=== PATIENT | male | born 1960 | race Caucasian/White ===

== ENCOUNTER 2021-02-26 02:19 | Emergency (ER) | payer OTHER ==
[~2021-02-26] VITALS: Ht 172.7 cm; Wt 83.5 kg
--- NOTE | 2021-02-26 02:38 | NUR ---
PT PRESENTS TO ER FOR RIGHT FLANK PAIN ASSOCIATED WITH NAUSEA AND DIFFICULTY URINATING, PT STATES HE THINKS ITS A KIDNEY STONE BECAUSE HE HAS HAD THEM BEFORE, PA AT BEDSIDE FOR POC
[2021-02-26 02:59] LABS: BASOPHILS % (AUTO) 1 % (0-1); EOSINOPHILS % (AUTO) 1 % (1-7); LYMPHOCYTES % (AUTO) 14 % (22-44); MEAN CORPUSCULAR HEMOGLOBIN 32.5 pg (27.5-34.5); MEAN CORPUSCULAR HGB CONC 35.1 g/dL (33.2-36.2); MEAN PLATELET VOLUME 6.9 fL (7.4-10.4); MONOCYTES % (AUTO) 6 % (2-9); NEUTROPHILS % (AUTO) 79 % (42-75); PLATELET COUNT 144 x10^3/uL (130-400); RED CELL DISTRIBUTION WIDTH 14.1 % (9.4-14.8)
[2021-02-26] MEDS ORDERED: ONDANSETRON 2MG/ML, 2ML IVPush ONE (03:00)
[2021-02-26] MEDS ORDERED: KETOROLAC 30 MG/1 ML IVPush ONE (03:00)
[2021-02-26 03:11] LABS: ALANINE AMINOTRANSFERASE 50 U/L (12-78); ALBUMIN 3.4 g/dL (3.4-5.0); ANION GAP 6 mmol/L (5-15); CALCIUM 8.9 mg/dL (8.5-10.1); CHLORIDE 107 mmol/L (98-107); CREATININE 1.21 mg/dL (0.7-1.3)
[2021-02-26 03:13] LABS: ALKALINE PHOSPHATASE 53 U/L (45-117); BILIRUBIN,TOTAL 0.4 mg/dL (0.2-1.0); TOTAL PROTEIN 6.8 g/dL (6.4-8.2)
[2021-02-26 03:17] LABS: MICROSCOPIC INDICATED
[2021-02-26] MEDS ORDERED: ONDANSETRON 2MG/ML, 2ML ONE (03:26)
[2021-02-26] MEDS ORDERED: KETOROLAC 30 MG/1 ML ONE (03:26)
--- NOTE | 2021-02-26 03:37 | NUR ---
PT LAYING IN BED, A/OX4, AT BEDSIDE, ALL NEEDS IN REACH, CALL LIGHT IN REACH, NAD, VSS
[2021-02-26 04:40] VITALS: BP 120/77
== END 2021-02-26 04:43 | disposition home or self-care (01) ==
LOC: ED 02:30
DX: N20.2 Calculus of kidney with calculus of ureter (principal); R11.0 Nausea
CPT/HCPCS: 36415; 74176; 80053; 81001; 85025; 87077; 87086; 96374; 96375; 99284; J1885; J2405; 87186

== ENCOUNTER 2021-02-26 14:43 | Emergency (ER) | payer OTHER ==
[~2021-02-26] VITALS: Ht 172.7 cm; Wt 83.5 kg
[2021-02-26 15:48] LABS: BASOPHILS % (AUTO) 0 % (0-1); EOSINOPHILS % (AUTO) 0 % (1-7); LYMPHOCYTES % (AUTO) 10 % (22-44); MEAN CORPUSCULAR HEMOGLOBIN 32.4 pg (27.5-34.5); MEAN CORPUSCULAR HGB CONC 34.5 g/dL (33.2-36.2); MEAN PLATELET VOLUME 6.8 fL (7.4-10.4); MONOCYTES % (AUTO) 6 % (2-9); NEUTROPHILS % (AUTO) 84 % (42-75); PLATELET COUNT 149 x10^3/uL (130-400); RED BLOOD COUNT 4.85 x10^6/uL (4.38-5.82); RED CELL DISTRIBUTION WIDTH 13.8 % (9.4-14.8)
[2021-02-26 15:56] LABS: ALBUMIN 3.8 g/dL (3.4-5.0); ANION GAP 6 mmol/L (5-15); CALCIUM 9.5 mg/dL (8.5-10.1); CHLORIDE 104 mmol/L (98-107); CREATININE 1.51 mg/dL (0.7-1.3)
--- NOTE | 2021-02-26 17:39 | NUR ---
assistant pressman: Pt ambulatory to room from lobby at this time.
--- NOTE | 2021-02-26 17:44 | NUR ---
Note undone in EDM - 02/26/21 at 1857 by [facility] INTINAL CONTACT WITH PT. PT REPORTS RT FLANK PAIN, HERE LAST NIGHT AND DX 3MM KIDNEY STONE. N/V, PAIN WORSE THAN LAST NIGHT. PT TO BED WITH STEADY GAIT. AT BEDSIDE. POSTIONED TO COMFORT. ATTACHED TO MONITORS. VSS. MUNIZ.
[2021-02-26 18:06] LABS: MICROSCOPIC INDICATED
[2021-02-26] MEDS ORDERED: KETOROLAC 30 MG/1 ML ONE (18:11)
[2021-02-26] MEDS ORDERED: ONDANSETRON 2MG/ML, 2ML ONE (18:12)
[2021-02-26] MEDS ORDERED: HYDROmorphone 1 MG/ML, 1ML INJ ONE (18:12)
[2021-02-26] MEDS ORDERED: KETOROLAC 30 MG/1 ML IVPush ONE (18:30)
[2021-02-26] MEDS ORDERED: ONDANSETRON 2MG/ML, 2ML IVPush ONE (18:30)
[2021-02-26] MEDS ORDERED: HYDROmorphone 1 MG/ML, 1ML INJ IV ONE (18:30)
--- NOTE | 2021-02-26 18:57 | NUR ---
LATE ENTRY: INTINAL CONTACT WITH PT. PT REPORTS RT FLANK PAIN, HERE LAST NIGHT AND DX 3MM KIDNEY STONE. N/V, PAIN WORSE THAN LAST NIGHT. PT TO BED WITH STEADY GAIT. AT BEDSIDE. POSTIONED TO COMFORT. ATTACHED TO MONITORS. VSS. MUNIZ.
--- NOTE | 2021-02-26 19:54 | NUR ---
PATIENT CLEARED FOR DISCHARGE. VERBALIZED UNDERSTANDING OF SELF CARE AND FOLLOW UP CARE AT HOME. VERBALIZED UNDERSTANDING WITH PRESCRIPTIONS. PATIENT AMBULATORY TO DISCHARGE WITHOUT COMPLICATIONS WITH BELONGINGS. NO NOTED ACUTE DISTRESS, VSS.
[2021-02-26 19:56] VITALS: BP 126/73
== END 2021-02-26 19:59 | disposition home or self-care (01) ==
LOC: ED 19:50
DX: N20.0 Calculus of kidney (principal); Z88.0 Allergy status to penicillin
CPT/HCPCS: 36415; 76770; 80048; 81001; 82040; 85025; 87086; 96374; 96375; 99284; J1170; J1885; J2405

== ENCOUNTER 2021-03-01 08:38 | Inpatient (IN) | payer OTHER ==
[~2021-03-01] VITALS: Ht 172.7 cm; Wt 92.1 kg
--- NOTE | 2021-03-01 09:00 | NUR ---
assumed care of pt. he is here w/ c/o of worsening pain r/t dx kidney stone w/ N/V. pt has been here previously for this dx. pt in gown, hooked to bp, pulse ox monitors. vss, nadn, call light w/in reach.
[2021-03-01] MEDS ORDERED: ONDANSETRON 2MG/ML, 2ML IVPush ONE (09:30)
[2021-03-01] MEDS ORDERED: SODIUM CHLORIDE 0.9% 1,000 ML IV ONE (09:30)
[2021-03-01] MEDS ORDERED: MORPHINE SULFATE 4 MG/ML, 1ML IVPush PRN (09:30)
[2021-03-01] MEDS ORDERED: SODIUM CHLORIDE 0.9% 1,000ML IVBOLUS ONE (09:30)
--- NOTE | 2021-03-01 09:41 | NUR ---
Pt to CT scan via tech.
[2021-03-01 09:48] LABS: BASOPHILS % (AUTO) 0 % (0-1); EOSINOPHILS % (AUTO) 0 % (1-7); LYMPHOCYTES % (AUTO) 8 % (22-44); MEAN CORPUSCULAR HEMOGLOBIN 32.5 pg (27.5-34.5); MEAN PLATELET VOLUME 6.8 fL (7.4-10.4); MONOCYTES % (AUTO) 6 % (2-9); NEUTROPHILS % (AUTO) 85 % (42-75); PLATELET COUNT 127 x10^3/uL (130-400); RED BLOOD COUNT 4.56 x10^6/uL (4.38-5.82); RED CELL DISTRIBUTION WIDTH 13.6 % (9.4-14.8)
[2021-03-01 09:51] LABS: ALBUMIN 3.4 g/dL (3.4-5.0); ANION GAP 3 mmol/L (5-15); CALCIUM 10.4 mg/dL (8.5-10.1); CHLORIDE 104 mmol/L (98-107)
[2021-03-01 09:55] LABS: ALANINE AMINOTRANSFERASE 33 U/L (12-78); ALKALINE PHOSPHATASE 44 U/L (45-117); BILIRUBIN,TOTAL 0.8 mg/dL (0.2-1.0); CREATININE 2.18 mg/dL (0.7-1.3); TOTAL PROTEIN 6.9 g/dL (6.4-8.2)
[2021-03-01] MEDS ORDERED: ONDANSETRON 2MG/ML, 2ML ONE (10:02)
[2021-03-01] MEDS ORDERED: MORPHINE SULFATE 4 MG/ML, 1ML ONE (10:03)
--- NOTE | 2021-03-01 10:12 | NUR ---
pt returned from ct, urine sample provided, collected and sent to lab. medicated per oct. vss, nadn, call light w/ in reach.
[2021-03-01 10:28] LABS: MICROSCOPIC AUTO
--- NOTE | 2021-03-01 10:45 | NUR ---
PT RESTING IN GURNEY, EYES CLOSED BEDSIDE. PT VSS, NADN, CALL LIGHT W/IN REACH.
--- NOTE | 2021-03-01 11:28 | NUR ---
New bag IV started per oct. pt resting in [facility], denies any needs. vss, nadn, call light w/in reach.
[2021-03-01] MEDS ORDERED: CEFTRIAXONE 1,000 MG in DEXTROSE 5% 50 ML IVPB ONE (12:00)
--- NOTE | 2021-03-01 12:59 | NUR ---
pt abx started, nadn. call light w/ in reach.
--- NOTE | 2021-03-01 13:23 | NUR ---
[facility] BEDSIDE NOW
[2021-03-01] MEDS ORDERED: ENALAPRILAT 1.25 MG/ML, 2ML IVPush PRN (13:30)
[2021-03-01] MEDS ORDERED: ACETAMINOPHEN 325 MG TABLET PO PRN (13:30)
[2021-03-01] MEDS ORDERED: MELATONIN 5 MG TABLET PO PRN (13:30)
[2021-03-01] MEDS ORDERED: POLYETHYLENE GLYCOL 17 GM PACKET PO PRN (13:30)
[2021-03-01] MEDS ORDERED: CEFTRIAXONE 2 GM in DEXTROSE 5% 50 ML IVPB SCH (14:00)
[2021-03-01 14:04] LABS: BASOPHILS % (AUTO) 0 % (0-1); EOSINOPHILS % (AUTO) 0 % (1-7); LYMPHOCYTES % (AUTO) 10 % (22-44); MEAN CORPUSCULAR HEMOGLOBIN 32.5 pg (27.5-34.5); MEAN CORPUSCULAR HGB CONC 34.6 g/dL (33.2-36.2); MEAN PLATELET VOLUME 6.9 fL (7.4-10.4); MONOCYTES % (AUTO) 6 % (2-9); NEUTROPHILS % (AUTO) 84 % (42-75); PLATELET COUNT 125 x10^3/uL (130-400); RED BLOOD COUNT 4.38 x10^6/uL (4.38-5.82); RED CELL DISTRIBUTION WIDTH 13.6 % (9.4-14.8)
[2021-03-01] MEDS: morphine SULFATE 10 MG/ML, 1ML IVPush PRN ×5 (14:27→23:06)
[2021-03-01] MEDS: ONDANSETRON 2MG/ML, 2ML IVPush PRN ×2 (16:00→22:05)
[2021-03-01] MEDS: HYDROcodone/APAP 5/325 TABLET PO PRN ×2 (17:15→21:24)
[2021-03-01 19:03] VITALS: BP 128/77
[2021-03-02] MEDS: morphine SULFATE 10 MG/ML, 1ML IVPush PRN ×8 (03:09→20:57)
[2021-03-02 03:13] VITALS: BP 141/81
[2021-03-02] MEDS: ONDANSETRON 2MG/ML, 2ML IVPush PRN ×3 (03:53→22:31)
[2021-03-02 06:04] LABS: ANION GAP 5 mmol/L (5-15); CALCIUM 8.9 mg/dL (8.5-10.1); CHLORIDE 104 mmol/L (98-107)
[2021-03-02 06:07] LABS: ALANINE AMINOTRANSFERASE 27 U/L (12-78); ALKALINE PHOSPHATASE 40 U/L (45-117); BILIRUBIN,TOTAL 0.8 mg/dL (0.2-1.0); CREATININE 2.17 mg/dL (0.7-1.3); TOTAL PROTEIN 6.5 g/dL (6.4-8.2)
[2021-03-02 07:45] VITALS: BP 136/78
[2021-03-02] MEDS: HYDROcodone/APAP 5/325 TABLET PO PRN ×4 (09:18→22:11)
[2021-03-02 12:53] VITALS: BP 125/72
[2021-03-02] MEDS ORDERED: CEFTRIAXONE 2 GM in DEXTROSE 5% 50 ML IVPB SCH (13:00)
[2021-03-02] MEDS: POTASSIUM CHLORIDE 10 MEQ in LACTATED RINGERS 1,000 ML IV SCH (16:27)
[2021-03-02] MEDS: LINEZOLID PMX 600MG/300ML 300 ML IV SCH (16:28)
[2021-03-02 20:07] VITALS: BP 124/66
[2021-03-03 00:26] VITALS: BP 144/83
[2021-03-03 01:27] VITALS: BP 148/80
[2021-03-03] MEDS: LORazepam 1MG TABLET PO ONE ×2 (01:42→04:17)
[2021-03-03] MEDS: LINEZOLID PMX 600MG/300ML 300 ML IV SCH ×2 (04:17→14:02)
[2021-03-03] MEDS: POTASSIUM CHLORIDE 10 MEQ in LACTATED RINGERS 1,000 ML IV SCH ×3 (04:20→21:41)
[2021-03-03 06:40] VITALS: BP 163/85
[2021-03-03] MEDS: morphine SULFATE 10 MG/ML, 1ML IVPush PRN (09:58)
[2021-03-03] MEDS ORDERED: OMNIPAQUE 350 MG/ML, 50 ML BOTTLE ONE ×2 (11:20→12:48)
[2021-03-03] MEDS ORDERED: FENTANYL PF 100 MCG/2ML ONE ×2 (12:34→13:09)
[2021-03-03] MEDS ORDERED: DEXAMETHASONE 4 MG/ML, 1ML ONE (13:26)
[2021-03-03] MEDS ORDERED: CEFAZOLIN 1,000 MG ONE (13:26)
[2021-03-03] MEDS ORDERED: PROPOFOL 10 MG/ML, 20ML ONE (13:26)
[2021-03-03] MEDS ORDERED: ONDANSETRON 2MG/ML, 2ML ONE (13:26)
[2021-03-03] MEDS ORDERED: BISACODYL 10 MG SUPP PR PRN (13:30)
[2021-03-03] MEDS ORDERED: METHOCARBAMOL 1,000 MG in DEXTROSE 5% 100 ML IV PRN (14:00)
[2021-03-03] MEDS ORDERED: hydrALAzine 20 MG/ML, 1ML IV PRN (14:00)
[2021-03-03] MEDS ORDERED: HYDROmorphone 1 MG/ML, 1ML INJ IVPush PRN (14:00)
[2021-03-03] MEDS ORDERED: ACETAMINOPHEN 325 MG TABLET PO PRN (14:00)
[2021-03-03] MEDS ORDERED: FENTANYL PF 100 MCG/2ML IV PRN (14:00)
[2021-03-03] MEDS ORDERED: ONDANSETRON 2MG/ML, 2ML IVPush PRN (14:00)
[2021-03-03] MEDS ORDERED: OXYcodone 5 MG/5 ML ORAL.SOL UDC PO PRN (14:00)
[2021-03-03] MEDS ORDERED: LABETALOL 5MG/ML, 20ML IV PRN (14:00)
[2021-03-03] MEDS ORDERED: PROMETHAZINE 25 MG/ML, 1ML IVPush PRN (14:00)
[2021-03-03] MEDS ORDERED: PROMETHAZINE 25 MG SUPP PR PRN (14:00)
[2021-03-03] MEDS ORDERED: LORazepam 2 MG/ML, 1ML IVPush PRN (14:00)
[2021-03-03] MEDS ORDERED: hydrALAzine 20 MG/ML, 1ML ONE (14:03)
[2021-03-03 18:05] LABS: ANION GAP 7 mmol/L (5-15); CALCIUM 8.6 mg/dL (8.5-10.1); CHLORIDE 101 mmol/L (98-107)
[2021-03-03 19:46] VITALS: BP 98/64
[2021-03-04 00:15] VITALS: BP 122/74
[2021-03-04] MEDS: LINEZOLID PMX 600MG/300ML 300 ML IV SCH (02:08)
[2021-03-04 03:43] VITALS: BP 121/71
[2021-03-04 05:28] LABS: BASOPHILS % (AUTO) 0 % (0-1); EOSINOPHILS % (AUTO) 0 % (1-7); LYMPHOCYTES % (AUTO) 9 % (22-44); MEAN CORPUSCULAR HEMOGLOBIN 32.7 pg (27.5-34.5); MEAN CORPUSCULAR HGB CONC 35.1 g/dL (33.2-36.2); MONOCYTES % (AUTO) 4 % (2-9); NEUTROPHILS % (AUTO) 87 % (42-75); PLATELET COUNT 153 x10^3/uL (130-400); RED BLOOD COUNT 4.36 x10^6/uL (4.38-5.82); RED CELL DISTRIBUTION WIDTH 13.5 % (9.4-14.8)
[2021-03-04 05:34] LABS: ALBUMIN 2.8 g/dL (3.4-5.0); ANION GAP 5 mmol/L (5-15); CALCIUM 8.7 mg/dL (8.5-10.1); CHLORIDE 101 mmol/L (98-107)
[2021-03-04 05:39] LABS: ALANINE AMINOTRANSFERASE 21 U/L (12-78); ALKALINE PHOSPHATASE 39 U/L (45-117); BILIRUBIN,TOTAL 0.5 mg/dL (0.2-1.0); CREATININE 1.69 mg/dL (0.7-1.3); TOTAL PROTEIN 6.6 g/dL (6.4-8.2)
[2021-03-04] MEDS: POTASSIUM CHLORIDE 10 MEQ in LACTATED RINGERS 1,000 ML IV SCH (05:58)
[2021-03-04 06:30] VITALS: BP 107/59
[2021-03-04] MEDS ORDERED: METHYLNALTREXONE 12 MG/0.6 ML SYR SQ ONE (08:30)
[2021-03-04] MEDS ORDERED: LINE600T12 PO ×2 (11:14)
[2021-03-04] MEDS ORDERED: LINE600T15 PO (13:05)
[2021-03-04] MEDS ORDERED: POLY17PO5 PO (13:05)
[2021-03-04 13:20] VITALS: BP 107/59
== END 2021-03-04 14:05 | disposition home or self-care (01) | DRG 660 ==
LOC: ED 10:40 → EDIP 12:06 → 4NE 13:42
PROVIDERS: ADMIT Hospitalist; ATTEND Internal Medicine
PROC: 0T768DZ Dilation of Right Ureter with Intraluminal Device, Via Natural or Artificial Opening Endoscopic (ICD-10-PCS; 2021-03-03)
PROC: 0TC68ZZ Extirpation of Matter from Right Ureter, Via Natural or Artificial Opening Endoscopic (ICD-10-PCS; principal; 2021-03-03 11:45)
DX: N13.6 Pyonephrosis (principal); N20.2 Calculus of kidney with calculus of ureter; B95.2 Enterococcus as the cause of diseases classified elsewhere; K59.03 Drug induced constipation; N17.9 Acute kidney failure, unspecified; T40.605A Adverse effect of unspecified narcotics, initial encounter; Z20.822 Contact with and (suspected) exposure to COVID-19; Z87.442 Personal history of urinary calculi; Z88.0 Allergy status to penicillin; Z88.2 Allergy status to sulfonamides
CPT/HCPCS: 36415; 74018; 74176; 76000; 80048; 80053; 81001; 83690; 85025; 87077; 87086; 87186; 87635; 96361; 96374; 96375; G0378; J0690; J0696; J1100; J2020; J2405; J2704; J3010; J3480; Q9967; C1758; C1769; C2617; J0360; J2270; J7030; J7120; Q0161